=== PATIENT | female | born 1975 | race Caucasian/White ===

== ENCOUNTER → 2017-09-19 | Outpatient (CLI) | payer OTHER ==
--- NOTE | 2017-09-19 22:48 | CONS ---
CONSULTATION DATE OF SERVICE: 09/19/2017 This patient is a 42-year-old lady who has been evaluated in the sleep center for sleep problems, including awakenings from sleep with gasping for air and difficulties initiating sleep. HISTORY OF PRESENT ILLNESS/SLEEP-WAKE EVALUATION: Patient's usual sleep schedule on weekdays is from 10 p.m. to 7 or 8 a.m. and on weekends from around 10 p.m. to around 9 or 10 a.m. She does have problems with falling asleep, although there is no TV in the bedroom. Sometimes she goes to bed and cannot fall asleep. During sleep, she wakes up 3 times with episodes of gasping for air, panic attacks, palpitations, heartburn. She may start to see her dreams after closing her eyes, and these are vivid dreams. After awakenings in the middle of the night, patient sometimes cannot fall asleep for up to 2 hours. [place] Sleepiness Scale is 6. She usually does not take any naps during the day; no time. She has 2 children. The patient had a sleep study about 2 years ago which was negative for obstructive sleep apnea, but since that time patient's weight has increased by around 40 pounds. PAST MEDICAL HISTORY: 1. Hypothyroidism. 2. Insulin resistance. 3. Episodes of panic attacks. PAST SURGICAL HISTORY: 1. D&C. 2. Tonsillectomy. MEDICATIONS: 1. Synthroid. 2. Metformin. 3. Wellbutrin. 4. Vitamin D. 5. Fish oil. 6. Ativan on a p.r.n. basis. SOCIAL HISTORY: Negative for smoking. Alcohol consumption rarely. FAMILY HISTORY: Hypertension, heart problems, hyperlipidemia, stroke, arthritis, headaches, insomnia, acid reflux, thyroid problems. REVIEW OF SYSTEMS: Multiple awakenings from sleep. Panic attacks. PHYSICAL EXAMINATION: lady without distress. VITAL SIGNS: BP 138/85, HR 82, RR 16, height 5 feet 2-1/2 inches, weight 142, BMI 29.1. Neck 12-1/2 inches in circumference. Temperature 97.9. Oxygen saturation at room air 99%. HEENT: PERRLA, EOMI. Evaluation of oropharynx showed tongue protrudes midline; short distance between soft palate and posterior pharyngeal wall. NECK: Supple. No JVD. Thyroid is not palpable. LUNGS: Clear to percussion and to auscultation. Good air exchange. No wheezing or rhonchi. HEART: S1, S2 regular. No murmurs, gallops or rubs. ABDOMEN: Soft and nontender. Bowel sounds are present. No organomegaly appreciated. EXTREMITIES : No clubbing or cyanosis. PROTECTIVE SIGNAL INSTALLER HELPER: Awake, alert, and oriented X3. Cranial nerves 2 to 7 intact. There is no fasciculation or atrophy. noted. No focal deficits observed. IMPRESSION: 1. Awakenings from sleep up to 3 times with occasional episodes of gasping for air and choking, short distance between soft palate and posterior pharyngeal wall; obstructive sleep apnea-hypopnea syndrome. 2. Insomnia, psychophysiological and possibly secondary to anxiety. 3. Hypothyroidism. 4. Insulin resistance. 5. History of panic attacks. 6. Status post tonsillectomy. 7. Status post D&C. 8. Status post several wrist surgeries bilaterally. PLAN: 1. Polysomnography for evaluation of patient's breathing during sleep. 2. CPAP/BiPAP titration if sleep study confirms obstructive sleep apnea-hypopnea syndrome. 3. Preferable position during sleep on the side. 4. No driving if patient feels any sleepiness. Patient is aware of civil and criminal liability for unsafe driving. 5. I will see patient for follow up visit to explain results of testing and following plan. I discussed with the patient some psychological techniques for treatment of insomnia, including stimulus control, paradoxical intention, worry time, not watching the clock. Thank you very much for referring this patient for consultation. Sincerely, Farshad Nolasco MD, PhD, FAASM Diplomat of [place] [employer] [place] [employer] Stuffer of [facility] [place] MMODL / MEAGHANN: [id number] /
== END | disposition home or self-care (01) ==
LOC: SLEEP 13:07
PROVIDERS: ATTEND Internal Medicine
DX: G47.33 Obstructive sleep apnea (adult) (pediatric) (principal); E03.9 Hypothyroidism, unspecified; E07.9 Disorder of thyroid, unspecified; K21.9 Gastro-esophageal reflux disease without esophagitis; F10.20 Alcohol dependence, uncomplicated; I10 Essential (primary) hypertension; E78.5 Hyperlipidemia, unspecified; I63.8 Other cerebral infarction; E88.81 Metabolic syndrome and other insulin resistance; Z90.89 Acquired absence of other organs; Z98.890 Other specified postprocedural states; Z86.59 Personal history of other mental and behavioral disorders; Z79.899 Other long term (current) drug therapy; Z79.84 Long term (current) use of oral hypoglycemic drugs; Z86.73 Personal history of transient ischemic attack (TIA), and cerebral infarction without residual deficits
CPT/HCPCS: 99211

== ENCOUNTER → 2018-01-09 | Outpatient (CLI) | payer OTHER ==
--- NOTE | 2018-01-09 15:21 | SFUN ---
SLEEP CENTER FOLLOW UP NOTE DATE OF SERVICE: 01/09/2018 A 42-year-old lady who has been followed in the Sleep Center to discuss results of the sleep study and following plan. We discussed the polysomnogram which was done on in 11/13/2017. Sleep study show slight decreasing sleep efficiency to 69.7% with a normal sleep latency of 14.9 minutes. REM sleep decreased during the test to 5.9%. Three short periods of REM documented and the patient was only on the left and right position during the sleep. She continued to wake up from sleep at home and sometimes has difficulties to reinitiate sleep. Total apnea-hypopnea index during the sleep study in the office was 1.9, which is totally normal. Apnea-hypopnea index in REM sleep slightly more 3.5. Lowest oxygen level was 90.9%, which is normal. [place] Sleepiness Scale today is 7. MEDICATIONS: Synthroid, metformin, albuterol inhaler, and steroid inhaler. PHYSICAL EXAM: Patient in no distress. BP 110/80, HR 68, RR 16, height 5, 2, weight 165, BMI 30. OROPHARYNX: Slightly short distance between soft palate and posterior pharyngeal wall. Some restriction of nasal breathing. Neck Supple, no JVD. Thyroid is not palpable. LUNGS Clear to percussion and to auscultation. Good air exchange. No wheezing or rhonchi. HEART S1, S2 regular. No murmurs, gallops, or rubs. ABDOMEN Soft and nontender. Bowel sounds are present. No organomegaly appreciated. EXTREMITIES No clubbing or cyanosis. AIRCRAFT MAINTENANCE ENGINEER Awake, alert, and oriented X3. Cranial nerves 2 to 7 intact. There is no fasciculation or atrophy. noted. No focal deficits observed. IMPRESSION: 1. No significant respiratory abnormalities by results of polysomnogram. During the sleep study amount of REM sleep decreased and some of the patient sometimes has more problem related to the breathing in REM sleep, subsequently, decreasing amount of REM sleep could be the reason for some underestimation of respiratory abnormalities. Patient continued to wake up from sleep at home after told not to sleep on the back position because she wakes up from sleep more often on the back. 2. Hypothyroidism. 3. Obesity, body mass index 30. 4. History of exercise-induced asthma. PLAN: 1. We will repeat sleep study using home sleep apnea test, possibly patient sleeps more on the back position at home. 2. Losing weight. 3. Sleep hygiene with regular time in bed for at least 7 hours. 4. No driving if feeling any sleepiness. Thank you very much for allowing me to participate in the management of your patient. Sincerely, Farshad Nolasco MD, PhD, FAASM Diplomat of [place] [employer] [employer] Adult Services Librarian of [facility] [place] MMODL / IJN: [id number] /
== END | disposition home or self-care (01) ==
LOC: SLEEP 13:14
PROVIDERS: ATTEND Internal Medicine
DX: G47.9 Sleep disorder, unspecified (principal); E03.9 Hypothyroidism, unspecified; E66.9 Obesity, unspecified; J45.909 Unspecified asthma, uncomplicated; Z79.51 Long term (current) use of inhaled steroids; Z68.30 Body mass index [BMI] 30.0-30.9, adult; Z79.899 Other long term (current) drug therapy

== ENCOUNTER → 2018-05-01 | Outpatient (CLI) | payer OTHER ==
--- NOTE | 2018-05-01 15:42 | SFUN ---
SLEEP CENTER FOLLOW UP NOTE DATE OF SERVICE: 05/01/2018 42-year-old lady who has been followed in Sleep Center for treatment of obstructive sleep apnea-hypopnea syndrome. Recently patient had a home sleep apnea test which showed apnea-hypopnea index 5.1, and patient was started on treatment with automatic machine. The patient has difficulties with the usage of automatic machines. She wakes up many times from sleep and has difficulties to fall asleep again. I checked her CPAP unit. Average most of the time pressure in the machine is 6.3 cm of water. Apnea-hypopnea index is only 0.4, which is absolutely normal. There is no significant leak at 7 L/minute. [place] Sleepiness Scale today is 5. CURRENT MEDICATIONS: Synthroid, metformin, albuterol inhaler and steroid inhaler. PHYSICAL EXAM: GENERAL Patient in no distress. VITAL SIGNS BP 113/95, HR 74, RR 16, height 65, weight 163.2, temperature 98.3. HEENT PERRLA, EOMI, evaluation of oropharynx showed low position of soft palate and the NECK Supple, no JVD. Thyroid is not palpable. LUNGS Clear to percussion and to auscultation. Good air exchange. No wheezing or rhonchi. HEART S1, S2 regular. No murmurs, gallops, or rubs. ABDOMEN Soft and nontender. Bowel sounds are present. No organomegaly appreciated. EXTREMITIES No clubbing or cyanosis. OVERLOCK HEMMER Awake, alert, and oriented X3. Cranial nerves 2 to 7 intact. There is no fasciculation or atrophy. noted. No focal deficits observed. IMPRESSION: 1. Mild obstructive sleep apnea-hypopnea syndrome apnea-hypopnea index 5.1. The patient was started to use automatic machine but has difficulties related to the pressure wake up with the machine. 2. Hypothyroidism. 3. History of panic attack and anxiety. 4. History of insulin resistance. 5. Status post tonsillectomy. 6. Status post D and C. 7. Status post several wrist surgeries. 8. History of exercise-induced asthma. PLAN: 1. I will change pressure in the machine to the maximal level of 6 cm of water with range of pressure for 4-6. 2. Patient will continue to use CPAP equipment every night for the whole night. 3. No driving if feels any sleepiness. Thank you very much for allowing me to participate in management of your patient. Sincerely, Farshad Nolasco MD, PhD, FAASM Diplomat of [employer] [place] [employer] Specialties [employer] [place] [employer] of [employer] Medicine Pain Management Nurse of [facility] [place] MMMITCHEL / HARITHA: [id number] /
== END | disposition home or self-care (01) ==
LOC: SLEEP 14:05
PROVIDERS: ATTEND Internal Medicine
DX: G47.33 Obstructive sleep apnea (adult) (pediatric) (principal); E03.9 Hypothyroidism, unspecified; F41.9 Anxiety disorder, unspecified; Z90.89 Acquired absence of other organs; Z98.890 Other specified postprocedural states; Z87.09 Personal history of other diseases of the respiratory system; Z86.39 Personal history of other endocrine, nutritional and metabolic disease; Z79.84 Long term (current) use of oral hypoglycemic drugs; Z79.899 Other long term (current) drug therapy

== ENCOUNTER → 2018-05-29 | Outpatient (CLI) | payer OTHER ==
--- NOTE | 2018-05-29 16:43 | PN ---
PROGRESS NOTE DATE OF SERVICE: 05/29/2018 43-year-old lady has been followed in Sleep Center for treatment of obstructive sleep apnea-hypopnea syndrome. After previous visit when pressure in her machine was changed, she sleeps better. Feels better in the morning and during the day but had several episodes of gasping for air. I checked her CPAP unit, range of the pressure is 4-6 cm of water. Usage is 100% of the time and 29/30 nights for more than 4 hours with average usage 7 hours. Pressure is 5.7 cm of water. Leak is 6 L/minutes which is normal. Apnea-hypopnea index only 0.3. [place] Sleepiness Scale today is 6. MEDICATIONS: Synthroid, metformin, albuterol inhaler and steroid inhaler. PHYSICAL EXAM: Patient in no distress. BP 128/74, HR 72, RR 16, weight 163, temp 98.0, oxygen saturation at room air 93% 96%. Oropharynx: Moderately low position of soft palate. Neck Supple, no JVD. Thyroid is not palpable. LUNGS Clear to percussion and to auscultation. Good air exchange. No wheezing or rhonchi. HEART S1, S2 regular. No murmurs, gallops, or rubs. ABDOMEN Soft and nontender. Bowel sounds are present. No organomegaly appreciated. EXTREMITIES No clubbing or cyanosis. LEAN COACH Awake, alert, and oriented X3. Cranial nerves 2 to 7 intact. There is no fasciculation or atrophy. noted. No focal deficits observed. IMPRESSION: 1. Obstructive sleep apnea-hypopnea syndrome. Patient demonstrated practically 100% compliance with treatment benefitting from treatment. 2. Hypothyroidism. 3. History of panic attack and anxiety. No episodes of recent panic attack during the night while she is on treatment with CPAP. 4. History of insulin resistance. 5. Status post tonsillectomy. 6. Status post D and C. 7. Status post several wrist surgeries. 8. History of exercise-induced asthma. PLAN: 1. I will increase pressure in the machine to the range from 4-7 cm of water instead of 6. 2. Patient will continue to use equipment every night for the whole night. 3. Watching weight. 4. No driving if feeling sleepiness. Thank you very much for allowing me to participate in management of your patient. MMODL / IJN: [id number] /
== END ==
LOC: SLEEP 14:58
PROVIDERS: ATTEND Internal Medicine
DX: G47.33 Obstructive sleep apnea (adult) (pediatric) (principal); E03.9 Hypothyroidism, unspecified; F41.9 Anxiety disorder, unspecified; F41.0 Panic disorder [episodic paroxysmal anxiety]; J45.998 Other asthma; Z90.89 Acquired absence of other organs; Z98.890 Other specified postprocedural states; Z79.899 Other long term (current) drug therapy; Z79.84 Long term (current) use of oral hypoglycemic drugs

== ENCOUNTER → 2018-12-25 | Outpatient (CLI) | payer OTHER ==
--- NOTE | 2018-12-25 21:27 | PN ---
PROGRESS NOTE DATE OF SERVICE: 12/25/2018 43-year-old lady has been followed in Sleep Center for treatment of obstructive sleep apnea-hypopnea syndrome. Patient successfully continued to use her CPAP equipment every night for the whole night without significant problems, except sometimes she feels that the size of the tongue is large in the morning when she wakes up. [place] Sleepiness Scale is 6. The patient has asthma with the using of CPAP equipment problems with asthma significantly decreased and she stopped to use the medication for . I checked her CPAP unit, range of the pressure 4 to 7. The average pressure of 5.7 cm of water. Leak only 5 L/minute which is normal range. Apnea-hypopnea index only 0.2, which is totally perfect. Machine showed good compliance with treatment. MEDICATIONS: Synthroid, metformin, albuterol, steroid. PHYSICAL EXAM: GENERAL: Patient in no distress. VITAL SIGNS: BP 123/63, HR 86, RR 18, height 5 feet 2-1/2 inches, weight 159.4 pounds, temperature 98.2. OROPHARYNX: Moderately low position of soft palate. Neck Supple, no JVD. Thyroid is not palpable. LUNGS Clear to percussion and to auscultation. Good air exchange. No wheezing or rhonchi. HEART S1, S2 regular. No murmurs, gallops, or rubs. ABDOMEN Soft and nontender. Bowel sounds are present. No organomegaly appreciated. EXTREMITIES No clubbing or cyanosis. MEDICAL DATA ANALYST Awake, alert, and oriented X3. Cranial nerves 2 to 7 intact. There is no fasciculation or atrophy. noted. No focal deficits observed. IMPRESSION: 1. Obstructive sleep apnea-hypopnea syndrome. Patient demonstrated good compliance with treatment benefitting from treatment. 2. Hypothyroidism. 3. History of asthma. 4. History of panic attack and anxiety. 5. History of insulin resistance. 6. Status post tonsillectomy. 7. Status post D and C. 8. Status post several wrist surgeries. 9. Patient will continue to use CPAP equipment every night for the whole night. 10.Sleep hygiene with regular time in bed for 7.5 hours. 11.Watching weight. 12.Precautions related to driving. No driving if feeling sleepiness. 13.Will maintain all necessary CPAP prescriptions including mask, tube filters. Thank you very much for allowing me to participate in the management of your patient. MMODL / IJN: [id number] /
== END ==
LOC: SLEEP 16:13
PROVIDERS: ATTEND Internal Medicine
DX: G47.33 Obstructive sleep apnea (adult) (pediatric) (principal); E03.9 Hypothyroidism, unspecified; J45.909 Unspecified asthma, uncomplicated; F41.0 Panic disorder [episodic paroxysmal anxiety]; F41.9 Anxiety disorder, unspecified; Z90.89 Acquired absence of other organs; Z98.890 Other specified postprocedural states; Z99.89 Dependence on other enabling machines and devices; Z86.39 Personal history of other endocrine, nutritional and metabolic disease; Z79.899 Other long term (current) drug therapy; Z79.84 Long term (current) use of oral hypoglycemic drugs

== ENCOUNTER → 2019-09-22 | Day surgery (SDC) | payer OTHER ==
[2019-09-21 08:43] VITALS: BMI 27.8
[~2019-09-22] MED LIST: SODIUM CHLORIDE 0.9% 1,000 ML IV SCH
[2019-09-22 13:22] VITALS: BP 132/71; PULSE 90; RESP 18; TEMP 99.1
--- NOTE | 2019-09-28 16:19 | P.PCN ---
Preoperative Diagnosis: Diagnosis Recurrent syncope Twelve-lead EKG shows sinus rhythm normal WA narrow QRS normal ST segments Early repolarization in inferior lateral leads 1 mm Tilt table test per protocol Baseline blood pressure 130/83 but his mercury, Baseline heart rate 67 beats a minute Patient was tilted upright at an angle of 70 per protocol The patient felt her heart was racing all through. Her baseline heart rate was 67 beats a minute within 10 minutes she reached 96-98 beats a minute and remained between 100 and 115 beats a minute thereafter. Blood pressure remained stable When she is laid supine heart rate went down to 81 beats a minute Impression Postural tachycardia syndrome Normal twelve-lead ECG Early repolarization abnormality inferolaterally 1 mm
== END ==
LOC: CATHEP 12:09
PROVIDERS: ATTEND Internal Medicine Clinical Cardiac Electrophysiology
DX: R00.0 Tachycardia, unspecified (principal); I95.1 Orthostatic hypotension
CPT/HCPCS: 81025; 93660

== ENCOUNTER → 2020-09-13 | Outpatient (CLI) | payer OTHER ==
[2020-09-13 14:03] LABS: Basophils % (A) 1 %; Eosinophils # (A) 0.1 k/uL (0-0.7); Eosinophils % (A) 2 %; HCT 41.1 % (34.0-46.0); Lymphocytes # (A) 1.3 k/uL (1.0-4.8); Lymphocytes % (A) 28 %; MCH 34.1 pg (25.0-35.0); MCHC 34.1 g/dL (31.0-37.0); MCV 100.1 fL (80.0-100.0); Mean Platelet Volume 9.1; Monocytes # (A) 0.3 k/uL (0-1.0); Monocytes % (A) 6 %; Neutrophils # (A) 2.8 k/uL (1.3-7.7); Neutrophils % (A) 61 %; Platelet Count 250 k/uL (150-450); RBC 4.11 m/uL (3.80-5.40); RDW 12.5 % (11.5-15.5); WBC 4.7 k/uL (3.8-10.6)
[2020-09-13 15:27] LABS: Erythrocyte Sedimentation Rate 2 mm/hr (0-20)
[2020-09-13 22:44] LABS: Ferritin 15.6 ng/mL (10.0-291.0)
[2020-09-13 22:45] LABS: Folate, Serum 10.2 ng/mL
[2020-09-14 01:38] LABS: C Reactive Protein <0.4 mg/dL (0.0-0.8); Creatine Kinase 43 U/L (26-186); Iron 122 ug/dL (50-170); Magnesium 2.1 mg/dL (1.5-2.4); Total Iron Binding Capacity 305 ug/dL (228-460)
== END | disposition home or self-care (01) ==
LOC: LABWHC1 13:14
PROVIDERS: ATTEND Physician Assistant
DX: M25.50 Pain in unspecified joint (principal); R20.0 Anesthesia of skin
CPT/HCPCS: 36415; 81291; 82550; 82607; 82728; 82746; 83090; 83540; 83550; 83735; 85025; 85652; 86140

== ENCOUNTER → 2020-09-21 | Outpatient (CLI) | payer OTHER ==
--- NOTE | 2020-09-21 16:26 | SFUN ---
SLEEP CENTER FOLLOW UP NOTE DATE OF SERVICE: 09/21/2020 This is a 45-year-old lady who has been followed in Sleep Center for treatment of obstructive sleep apnea-hypopnea syndrome. The patient had COVID-19 on July 07, 2020, and after the COVID she developed more problems with her legs, restless leg symptoms and movements of legs during the night, numbness in her arms, sometimes tremors in her neck. She has difficulty falling asleep at night. She was not able to use her CPAP equipment. [place] Sleepiness Scale today is 9. MEDICATIONS: 55 mcg once a day, 5 mg twice a day, 81 as needed, 800 mg once a day, B12 supplement. [place] Sleepiness Scale today is 9. PHYSICAL EXAMINATION: GENERAL: A pleasant patient in no distress. VITAL SIGNS: BP 122/64, HR 69, RR 12, height 5 feet 3 inches, weight 156, BMI 27.4. HEENT: PERRLA, EOMI. Evaluation of oropharynx showed tongue protrudes midline. Moderately low position of soft palate. NECK: Supple. No JVD. Thyroid is not palpable. LUNGS: Clear to percussion and to auscultation. Good air exchange. No wheezing or rhonchi. HEART: S1, S2 regular. No murmurs, gallops or rubs. ABDOMEN: Soft and nontender. Bowel sounds are present. No organomegaly appreciated. EXTREMITIES: No clubbing or cyanosis. OTA: Awake, alert, and oriented X3. Cranial nerves 2 to 7 intact. There is no fasciculation or atrophy. noted. No focal deficits observed. IMPRESSION: 1. Obstructive sleep apnea-hypopnea syndrome. The patient did not use her machine since she had an infection with COVID-19 in June 2020. 2. History of COVID-19 infection in June of 2020. 3. Discomfort in legs and arms during sleep, movements at night, numbness in the arms; possible restless legs and periodic limb movements. 4. History of asthma. 5. History of panic attack and anxiety. 6. History of insulin resistance. 7. Status post tonsillectomy. 8. Status post dilatation and curettage. 9. Status post several wrist surgeries. PLAN: 1. The patient should restart to use her CPAP equipment every night. 2. We will proceed with CPAP titration and also we will check for patient movements during sleep for possible periodic limb movements. Sleep study also was recommended by her her neurologist. The patient never had a polysomnogram before. She had a home sleep test which showed mild obstructive sleep apnea and then she had treatment with AutoPAP. 3. Sleep hygiene with regular time in bed for at least 7-1/2 hours. 4. Prescription for Ambien 5 mg at bedtime, 20 tablets without refill, to establish sleep schedule at the present time. Psychological techniques for treatment of insomnia. 5. No driving if feeling any sleepiness. Thank you very much for allowing me to participate in the management of your patient. Sincerely, Farshad Nolasco MD, PhD, FAASM Diplomat of [place] [employer] [place] [employer] Client Success Director of [facility] [place] YOANNA / HARITHA: [id number] / MTDMary
== END | disposition home or self-care (01) ==
LOC: SLEEP 11:07
PROVIDERS: ATTEND Internal Medicine
DX: G47.33 Obstructive sleep apnea (adult) (pediatric) (principal); Z86.16 Personal history of COVID-19; Z87.09 Personal history of other diseases of the respiratory system; Z86.59 Personal history of other mental and behavioral disorders; Z98.890 Other specified postprocedural states

== ENCOUNTER → 2020-11-16 | Outpatient (CLI) | payer OTHER ==
--- NOTE | 2020-11-16 20:13 | SFUN ---
SLEEP CENTER FOLLOW UP NOTE DATE OF SERVICE: 11/16/2020 This 45-year-old lady has been followed in Sleep Center for treatment of obstructive sleep apnea-hypopnea syndrome. Recently the patient had a CPAP titration which showed that her respiration is under great control with CPAP. The patient continues to use her CPAP equipment, but not every night, and sometimes she wakes up from sleep with pain attacks. I checked the [place] Sleepiness Scale. Today it is 7, which is in normal range. I checked her CPAP unit. It is on automatic, range 4 to 7. Average pressure is 5.4. Usage is 14/30 nights, and 6/30 nights for more than 4 hours, average usage 4.2 hours per night. Leak is only 4 L/minute. Apnea-hypopnea index is only 0.3, which is absolutely perfect. MEDICATIONS: 1. 75 mg once a day. 2. Cytomel 5 twice a day. 3. Claritin. 4. B12 . PHYSICAL EXAMINATION: GENERAL: A pleasant patient in no distress. VITAL SIGNS: BP 132/76, HR 66, RR 15, oxygen saturation at room air 99%, temperature 98.1. HEENT: PERRLA, EOMI. Evaluation of oropharynx showed tongue protrudes midline. Mallampati II to III. NECK: Supple. No JVD. Thyroid is not palpable. LUNGS: Clear to percussion and to auscultation. Good air exchange. No wheezing or rhonchi. HEART: S1, S2 regular. No murmurs, gallops or rubs. ABDOMEN: Slightly obese. EXTREMITIES: No clubbing or cyanosis. WASTE WATER OR WATER PLANT OPERATOR: Awake, alert, and oriented X3. Cranial nerves 2 to 7 intact. There is no fasciculation or atrophy. noted. No focal deficits observed. IMPRESSION: 1. Obstructive sleep apnea-hypopnea syndrome. The patient restarted to use her CPAP equipment. With the CPAP equipment, respiration is totally normal and she is benefitting from treatment. 2. History of COVID-19 infection in June of 2020. 3. History of asthma. 4. History of panic attack and anxiety. 5. History of insulin resistance. 6. Status post tonsillectomy. 7. Status post dilatation and curettage. 8. Status post several wrist surgeries. PLAN: 1. Patient will continue to use PAP equipment every night for the whole night. 2. Sleep hygiene with regular time in bed for at least 7-1/2 to 8 hours. 3. Precautions related to driving. No driving if feeling sleepiness. 4. I will maintain all necessary prescription for PAP supplies including mask, tube, filters. 5. Watching weight. 6. Follow-up visit in 6 months or earlier if patient has any problems. Thank you very much for allowing me to participate in the management of your patient. Sincerely, Farshad Nolasco MD, PhD, FAASM Diplomat of [place] [employer] [place] Service Dispatcher of [facility] [place] MMODL / IJN: [id number] /
== END ==
LOC: SLEEP 14:48
PROVIDERS: ATTEND Internal Medicine
DX: G47.33 Obstructive sleep apnea (adult) (pediatric) (principal); J45.909 Unspecified asthma, uncomplicated; F41.9 Anxiety disorder, unspecified; E88.81 Metabolic syndrome and other insulin resistance; F41.0 Panic disorder [episodic paroxysmal anxiety]; Z98.890 Other specified postprocedural states; Z86.16 Personal history of COVID-19; Z90.89 Acquired absence of other organs

== ENCOUNTER 2021-01-28 08:31 | Emergency (ER) | payer OTHER ==
[2021-01-28 08:44] VITALS: BP 115/79; PULSE 80; RESP 20; TEMP 98.3
[2021-01-28] MEDS ORDERED: HYDROmorphone 1 MG/ML 1 ML SYRINGE IM STA (09:06)
--- NOTE | 2021-01-28 09:16 | ED ---
Back Pain HPI - General Chief Complaint: Back Pain/Injury Stated Complaint: back pain Time Seen by Provider: 01/28/21 08:52 Source: patient, family, RN notes reviewed Mode of arrival: ambulatory Limitations: no limitations - History of Present Illness Initial Comments: This is a 45-year-old female presents emergency department she went to low back pain. Patient states that she attempted to who and states that she merely felt some pain in her back. She states she's injured backwards few years ago which she had an MRI showing some bulging disc. 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 Patient denies any bowel bladder incontinence or retention. She does suffer with chronic constipation which is ongoing. She states she has no problems urinating the pain is worse with movement better at rest. Patient states she did receive Toradol shot by PCP and steroids and she continues to have no relief. - Related Data Home Medications Medication Instructions Recorded Confirmed Ativan 1 tab PO DIRECTED PRN 09/21/19 09/22/19 Levothyroxine Sodium [Synthroid] 112 mcg PO DAILY 09/21/19 09/22/19 Omeprazole 1 tab PO DAILY PRN 09/21/19 Vitamin B12 1 tab PO DAILY 09/21/19 Vitamin D3 1 tab PO DAILY 09/21/19 buPROPion HCL [Wellbutrin Sr] 200 mg PO DAILY 09/21/19 09/22/19 metFORMIN HCL [Glucophage] 500 mg PO DAILY 09/21/19 09/22/19 Previous Rx's Medication Instructions Recorded Cyclobenzaprine [Flexeril] 10 mg PO TID PRN #15 tab 01/28/21 Allergies Allergy/AdvReac Type Severity Reaction Status Date / Time lamotrigine [From Lamictal] Allergy Rash/Hives Verified 01/28/21 08:44 latex Allergy Rash/Hives Verified 01/28/21 08:44 Penicillins Allergy Rash/Hives Verified 01/28/21 08:44 vancomycin Allergy Swelling Verified 01/28/21 08:44 erythromycin base AdvReac Nausea & Verified 01/28/21 08:44 Vomiting gluten AdvReac GI upset Verified 01/28/21 08:44 Iodinated Contrast Media AdvReac states Verified 01/28/21 08:44 "Just don't feel well" Review of Systems ROS Statement: Those systems with pertinent positive or pertinent negative responses have been documented in the HPI. ROS Other: All systems not noted in ROS Statement are negative. Past Medical History Past Medical History: Musculoskeletal Disorder, Thyroid Disorder Additional Past Medical History / Comment(s): SEE DR VENCES H&P, polycystic ovarian dx, has Earless cyanosis hyper mobility, hiatal hernia History of Any Multi-Drug Resistant Organisms: None Reported Past Surgical History: Orthopedic Surgery, Tonsillectomy Additional Past Surgical History / Comment(s): mariann wrist sx total of 9x, D&C, Laporscopic sx, colonoscopies Past Anesthesia/Blood Transfusion Reactions: Postoperative Nausea & Vomiting (PONV) Past Psychological History: ADD/ADHD, Anxiety, Panic Disorder Smoking Status: Never smoker Past Alcohol Use History: None Reported Past Drug Use History: None Reported General Exam Limitations: no limitations General appearance: alert, in no apparent distress Head exam: Present: atraumatic, normocephalic, normal inspection Neck exam: Present: normal inspection, full ROM. Absent: tenderness, meningismus, lymphadenopathy Respiratory exam: Present: normal lung sounds bilaterally. Absent: respiratory distress, wheezes, rales, rhonchi, stridor Cardiovascular Exam: Present: regular rate, normal rhythm, normal heart sounds. Absent: systolic murmur, diastolic murmur, rubs, gallop, clicks Extremities exam: Present: other (While trying pulses equal bilaterally equal color equal warmth pain with range of motion of the lower extremities and her back) Back exam: Present: tenderness, muscle spasm, paraspinal tenderness. Absent: full ROM (Decreased secondary to pain), vertebral tenderness Neurological exam: Present: alert Skin exam: Present: warm, dry, intact, normal color. Absent: rash Course Vital Signs 01/28/21 08:34 Temperature 98.3 F Pulse Rate 80 Respiratory 20 Rate Blood Pressure 115/79 O2 Sat by Pulse 96 Oximetry Medical Decision Making - Medical Decision Making 45-year-old presented for low back pain. She has no red flag symptoms she's neurovascular intact. Patient has lumbar strain. We discussed return parameters. Discussed Disposition Clinical Impression: Strain of lumbar region Disposition: HOME SELF-CARE Condition: Stable Instructions (If sedation given, give patient instructions): Acute Low Back Pain (ED) Additional Instructions: Please return to the Emergency Department if symptoms worsen or any other concerns. Prescriptions: Cyclobenzaprine [Flexeril] 10 mg PO TID PRN #15 tab PRN Reason: Muscle Spasm Is patient prescribed a controlled substance at d/c from ED?: No Referrals: Mely Padilla MD [Primary Care Provider] - 1-2 days Jagdish Knight DO [Doctor of Osteopathic Medicine] - 1-2 days Time of Disposition: 10:11
--- NOTE | 2021-01-28 09:33 | XR ---
Lumbar spine. HISTORY: Back pain COMPARISON: None. TECHNIQUE: 4 views lumbar spine were obtained. FINDINGS: The lumbar vertebral segments are normal in height and alignment and there is no fracture or subluxat ion. There is minimal degenerative disc disease with minimal disc space narrowing at the L4-5 level and mi ld spondylosis at the L3-4 and L4-5 levels. The facet joints are intact. There is no spondylolysis or spondylolisthesis. The sacrum and SI joints are normal. IMPRESSION: Minimal degenerative disc disease at the L3-4 and L4-5 levels with no other significant abnormality s een
[2021-01-28] MEDS ORDERED: ACET/COD 300 MG/30 MG STARTER PACK 6 TAB BTL PO STA (10:09)
== END 2021-01-28 10:38 | disposition home or self-care (01) ==
LOC: EC 08:31
DX: S39.012A Strain of muscle, fascia and tendon of lower back, initial encounter (principal); K59.09 Other constipation; E07.9 Disorder of thyroid, unspecified; F41.9 Anxiety disorder, unspecified; Z79.84 Long term (current) use of oral hypoglycemic drugs; Z91.040 Latex allergy status; Z88.0 Allergy status to penicillin; Z88.1 Allergy status to other antibiotic agents; X58.XXXA Exposure to other specified factors, initial encounter
CPT/HCPCS: 72110; 99283; 96372; J1170

== ENCOUNTER → 2023-03-07 | Outpatient (CLI) | payer OTHER ==
--- NOTE | 2023-03-07 11:16 | US ---
EXAMINATION TYPE: US gallbladder DATE OF EXAM: 03/07/2023 COMPARISON: NONE CLINICAL INDICATION: Female, 47 years old with history of R10.11 RIGHT UPPER QUADRANT PAIN; RUQ pain TECHNIQUE: Multiple sonographic images of the right upper quadrant are obtained. FINDINGS: EXAM MEASUREMENTS: Liver Length: 13 cm Gallbladder Wall: .2 cm CBD: .4 cm Right Kidney: 9.8 x 4.0 x 5.3 cm Pancreas: Tail obscured by overlying bowel gas. Liver: Echogenic area right lobe 1.8 x 1.3 x 1.1 cm, typical of a benign hemangioma. Stability can be confirmed at a 6-12 month follow-up. Gallbladder: No stones seen Evidence for sonographic Ramos's sign: No CBD: wnl Right Kidney: wnl IMPRESSION: A 1.8 cm echogenic lesion posterior right liver lobe, typical of a benign hemangioma. Recommend 6-12 month follow-up ultrasound to ensure stability. No gallstones or biliary ductal dilatation.
== END | disposition home or self-care (01) ==
LOC: RADUSWWP 10:06
PROVIDERS: ATTEND Family Medicine
DX: K76.89 Other specified diseases of liver (principal); D18.03 Hemangioma of intra-abdominal structures; R10.11 Right upper quadrant pain
CPT/HCPCS: 76705